=== PATIENT | female | born 1965 | race Caucasian/White ===

== ENCOUNTER 2020-06-15 10:37 | Emergency (ER) | payer BC, OTHER ==
[~2020-06-15] VITALS: Ht 167.6 cm; Wt 90.0 kg
[~2020-06-15 10:37] MED LIST: IBUPROFEN
[2020-06-15] MEDS ORDERED: KETOROLAC 30MG/ML VIAL IV STA (10:48)
[2020-06-15 11:02] VITALS: BP 190/83
[2020-06-15 11:06] LABS: BASOPHILS % 0.9 % (0.0-2.0); EOSINOPHILS % 2.5 % (0.0-5.0); HEMATOCRIT. 41.5 % (36.0-48.0); HEMOGLOBIN. 13.9 g/dL (12.0-16.0); LYMPHOCYTES % 25.7 % (20.0-50.0); MEAN CORPUSCULAR VOLUME 83.7 fL (81.0-99.0); MEAN PLATELET VOLUME 8.9 fl (7.4-10.4); MONOCYTES % 4.8 % (2.0-8.0); NEUTROPHILS % 66.1 % (40.0-76.0); PLATELET 249 x1000/uL (130-400); RED BLOOD CELL COUNT 4.96 mill/uL (4.2-5.4); RED CELL DISTRIBUTION WIDTH 14.6 % (11.6-14.6)
[2020-06-15 11:12] LABS: CHLORIDE 106 mEq/L (98-107)
[2020-06-15] MEDS ORDERED: IBUP-2028 MT (11:50)
[2020-06-15] MEDS ORDERED: METO-293 MT (11:50)
== END 2020-06-15 12:52 | disposition home or self-care (01) ==
LOC: ER 11:10
DX: R55 Syncope and collapse (principal); S00.83XA Contusion of other part of head, initial encounter; W01.198A Fall on same level from slipping, tripping and stumbling with subsequent striking against other object, initial encounter; Y93.89 Activity, other specified; Y92.89 Other specified places as the place of occurrence of the external cause; Y99.0 Civilian activity done for income or pay; Z86.16 Personal history of COVID-19
CPT/HCPCS: 36415; 70450; 71045; 80053; 83880; 84484; 85025; 93005; 96374; 99285; J1885